=== PATIENT | female | born 1985 | race African-American/Black ===

== ENCOUNTER 2020-03-28 12:35 | Emergency (ER) | payer OTHER ==
[~2020-03-28] VITALS: Ht 162.6 cm; Wt 77.0 kg
[2020-03-28 12:50] VITALS: BP 124/75
--- NOTE | 2020-03-28 13:43 | PHYS DOC ---
Past Medical History Past Medical History: Diabetes-Type II Additional Past Medical Histor: PCOS, BACK PAIN, ANEMIA Additional Past Surgical Histo: CATARACTS, BREAST REDUCTION, COLONOSCOPY, BIOPSY Smoking Status: Never Smoker Alcohol Use: Rarely General Adult EDM: Chief Complaint: KNEE INJURY HPI: HPI: Patient is a 34-year-old female presents with a right knee injury. 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 She states the pain is located primarily on the outside of her knee and made worse with bending it. She denies any other injury. She does state that it is difficult to walk secondary to pain. [] Review of Systems: Review of Systems: Constitutional: Denies fever or chills. [] Eyes: Denies change in visual acuity. [] HENT: Denies nasal congestion or sore throat. [] Respiratory: Denies cough or shortness of breath. [] Cardiovascular: Denies chest pain or edema. [] GI: Denies abdominal pain, nausea, vomiting, bloody stools or diarrhea. [] : Denies dysuria. [] Musculoskeletal: Per HPI. [] Integument: Denies rash. [] Neurologic: Denies headache, focal weakness or sensory changes. [] Endocrine: Denies polyuria or polydipsia. [] Lymphatic: Denies swollen glands. [] Psychiatric: Denies depression or anxiety. [] Heart Score: Risk Factors: Risk Factors: DM, Current or recent (<one month) smoker, HTN, HLP, family history of CAD, obesity. Risk Scores: Score 0 - 3: 2.5% MACE over next 6 weeks - Discharge Home Score 4 - 6: 20.3% MACE over next 6 weeks - Admit for Clinical Observation Score 7 - 10: 72.7% MACE over next 6 weeks - Early Invasive Strategies Allergies: Allergies: Allergies Coded Allergies Type Severity Reaction Last Updated Verified No Known Drug Allergies 03/28/20 No Physical Exam: PE: Constitutional: Well developed, well nourished, no acute distress, non-toxic appearance. [] HENT: Normocephalic, atraumatic, bilateral external ears normal, oropharynx moist, no oral exudates, nose normal. [] Neck: Normal range of motion, no tenderness, supple, no stridor. [] Cardiovascular:Heart rate regular rhythm, no murmur [] Lungs & Thorax: Bilateral breath sounds clear to auscultation [] Extremities: Right knee is tender to palp no decreased range of motion there is no obvious swelling no patellar apprehension Neurologic: Alert and oriented X 3, normal motor function, normal sensory function, no focal deficits noted. [] Psychologic: Anxious [] Current Patient Data: Vital Signs: Vital Signs Date Time Temp Pulse Resp B/P (MAP) Pulse Ox O2 Delivery O2 Flow Rate FiO2 03/28/20 12:50 98.5 85 16 124/75 (91) 97 Room Air 98.5 EKG: EKG: [] Radiology/Procedures: Radiology/Procedures: []REASON: FALL ONTO R KNEE, RT KNEE PAIN PROCEDURE: KNEE RIGHT 3V KNEE RIGHT 3V DATE: 03/28/2020 1:25 PM INDICATION: Pain after falling COMPARISON: None. FINDINGS: Bones: There is no evidence of acute fracture or dislocation. Joints: The joint spaces are normal. There is no joint effusion. Miscellaneous: None. IMPRESSION: No evidence of acute fracture. Course & Med Decision Making: Course & Med Decision Making Pertinent Labs and Imaging studies reviewed. (See chart for details) [] Dragon Disclaimer: Dragon Disclaimer: This electronic medical record was generated, in whole or in part, using a voice recognition dictation system. Departure Departure Impression: Primary Impression: Contusion of right knee Qualified Codes: S80.01XA - Contusion of right knee, initial encounter Disposition: HOME, SELF-CARE Condition: STABLE Referrals: NON,STAFF (PCP) Patient Instructions: Contusion Scripts Naproxen (NAPROXEN) 500 Mg Tablet 1 TAB PO BID PRN for PAIN, #30 TAB 1 Refill Prov: MARTIN WILD DO 03/28/20 MARTIN WILD DO March 28, 2020 13:43
--- NOTE | 2020-03-28 13:54 | RAD ---
KNEE RIGHT 3V DATE: 03/28/2020 1:25 PM INDICATION: Pain after falling COMPARISON: None. FINDINGS: Bones: There is no evidence of acute fracture or dislocation. Joints: The joint spaces are normal. There is no joint effusion. Miscellaneous: None. IMPRESSION: No evidence of acute fracture. Electronically signed by: Leonard Marroquin MD (03/28/2020 1:51 PM) [facility]
[2020-03-28] MEDS ORDERED: NAPR-514 PO (14:06)
== END 2020-03-28 14:20 | disposition home or self-care (01) ==
LOC: ER 12:35
DX: S80.01XA Contusion of right knee, initial encounter (principal); E11.9 Type 2 diabetes mellitus without complications; Z86.2 Personal history of diseases of the blood and blood-forming organs and certain disorders involving the immune mechanism; W18.39XA Other fall on same level, initial encounter; Y93.89 Activity, other specified; Y92.89 Other specified places as the place of occurrence of the external cause; Y99.8 Other external cause status
CPT/HCPCS: 73562; 99283